=== PATIENT | female | born 2000 | race Caucasian/White ===

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

== ENCOUNTER → 2023-06-05 | Outpatient (CLI) | payer BC ==
[~2023-06-05] MED LIST changes: +BACTRIM DS 8001 TAB PO
== END ==
LOC: COL.RAD 12:00
DX: N83.201 Unspecified ovarian cyst, right side (principal)